=== PATIENT | female | born 1940 | race Caucasian/White ===

== ENCOUNTER 2016-10-21 12:53 | Inpatient (IN) | payer OTHER, MEDICARE ==
--- NOTE | 2016-10-21 13:21 | EDPHY ---
H & P Time Seen by Provider: 10/21/16 13:05 HPI/ROS: Chief complaint. Rectal bleeding HPI. Patient is a 76-year-old female who has had 4 days of rectal bleeding. She was placed on Eliquis in July for atrial fibrillation. She has not previously had rectal bleeding. She has some crampy abdominal pain. She has had bright red blood since Tuesday. She has had a hemoglobin and hematocrit test on Tuesday and Tuesday which showed decreasing hematocrit. Today bright red blood again per rectum with bowel movement. Now today lightheaded on standing and dizzy. No chest discomfort or trouble breathing. No nausea vomiting. She has never had a colonoscopy. No family history for colon cancer. ROS Constitutional. Dizzy and weakness Eyes. no problems with vision ENT. no sore throat, no nasal drainage Cardiovascular. no chest pain Respiratory. no shortness of breath, no cough Abdominal. Abdominal pain and bright red blood per rectum . no problems urinating MS. no calf pain/swelling, no neck/back pain, no joint pain Skin. no rash Lymph. no swollen glands Neuro. no headache, dizziness, difficulty walking secondary dizziness Past Medical/Surgical History: Hypertension and atrial fibrillation Social History: Lives alone, nonsmoker, no alcohol Smoking Status: Never smoked Physical Exam: General Appearance: Alert pleasant well-developed female vital signs show heart rate 110 Eyes: Pupils equal and round no pallor or injection. ENT, Mouth: Mucous membranes are moist. Respiratory: There are no retractions, lungs are clear to auscultation. Cardiovascular: Regular rate and rhythm. Gastrointestinal: Abdomen is soft with diffuse lower abdominal tenderness that is quite mild. Bowel sounds are increased. Rectal exam shows bright red blood Neurological: Awake and alert, sensory and motor exams grossly normal. Skin: Warm and dry, no rashes. Musculoskeletal: Neck is supple nontender. Extremities symmetrical, full range of motion. Psychiatric: Patient is oriented X 3, there is no agitation. Constitutional: Initial Vital Signs Temperature (C) 36.6 C 10/21/16 12:58 Heart Rate 110 H 10/21/16 12:58 Respiratory Rate 20 10/21/16 12:58 Blood Pressure 166/100 H 10/21/16 12:58 O2 Sat (%) 95 10/21/16 12:58 O2 Delivery Mode Room Air Allergies/Adverse Reactions: No Known Allergies Allergy (Verified 10/21/16 12:54) Home Medications: Medication Instructions Recorded Telmisartan 10/21/16 Medical Decision Making - Diagnostics EKG Interpretation: EKG interpreted by me shows atrial fibrillation. Normal axis. No significant ST elevation or depression. Ventricular response is 99 Procedures: IV normal saline. Hemoccult testing ED Course/Re-evaluation: Re-evaluation at 2:30 p.m.. Patient is stable. The patient, her daughter, and I discussed laboratory evaluation EKG findings, treatment plan including need for admission and further evaluation. They expressed understanding and agreement I consulted and discussed case Dr. Haynes, hospitalist, who agrees to the admission I consulted and discussed the case with Dr. Sabillon, location manager for Gastroenterology, who agrees to see the patient. Differential Diagnosis: The patient has ongoing rectal bleeding. She has never had a colonoscopy. She has been on blood thinners up until the last 4 days the bleeding has continued. This may be diverticular bleeding. Differential would also include colon cancer. Presumably the blood thinners play a role in her rectal bleeding - Data Points Laboratory Results: Laboratory Results 10/21/16 13:39 10/21/16 13:39 10/21/16 10/21/16 13:39 13:30 WBC 6.97 10^3/uL (3.80-9.50) RBC 3.90 L 10^6/uL (4.18-5.33) Hgb 11.7 L g/dL (12.6-16.3) Hct 34.5 L % (38.0-47.0) MCV 88.5 fL (81.5-99.8) MCH 30.0 pg (27.9-34.1) MCHC 33.9 g/dL (32.4-36.7) RDW 12.8 % (11.5-15.2) Plt Count 253 10^3/uL (150-400) MPV 11.7 fL (8.7-11.7) Neut % (Auto) 68.7 % (39.3-74.2) Lymph % (Auto) 21.8 % (15.0-45.0) [place] % (Auto) 8.0 % (4.5-13.0) Eos % (Auto) 0.4 L % (0.6-7.6) Baso % (Auto) 0.7 % (0.3-1.7) Nucleat RBC Rel Count 0.0 % (0.0-0.2) Absolute Neuts (auto) 4.78 10^3/uL (1.70-6.50) Absolute Lymphs (auto) 1.52 10^3/uL (1.00-3.00) Absolute Monos (auto) 0.56 10^3/uL (0.30-0.80) Absolute Eos (auto) 0.03 10^3/uL (0.03-0.40) Absolute Basos (auto) 0.05 10^3/uL (0.02-0.10) Absolute Nucleated RBC 0.00 10^3/uL (0-0.01) Immature Gran % 0.4 % (0.0-1.1) Immature Gran # 0.03 10^3/uL (0.00-0.10) PT 13.9 SEC (12.0-15.0) INR 1.08 (0.83-1.16) APTT 26.8 SEC (23.0-38.0) Sodium 139 mEq/L (134-144) Potassium 4.1 mEq/L (3.5-5.2) Chloride 106 mEq/L (97-110) Carbon Dioxide 23 mEq/l (22-31) Anion Gap 10 mEq/L (8-16) BUN 13 mg/dL (7-23) Creatinine 0.7 mg/dL (0.6-1.0) Estimated GFR > 60 Glucose 137 H mg/dL (70-100) Calcium 9.4 mg/dL (8.5-10.4) Stool Occult Bld Scrn POSITIVE H (NEGATIVE) Medications Given: Discontinued Medications Sodium Chloride (Ns) 1,000 mls @ 0 mls/hr IV ONCE ONE PRN Reason: Wide Open Stop: 10/21/16 13:39 Last Admin: 10/21/16 14:06 Dose: 1,000 mls Departure - Departure Disposition: [facility] Inpatient Acute Clinical Impression: Gastrointestinal hemorrhage Qualifiers: GI bleed type/associated pathology: unspecified gastrointestinal hemorrhage type Qualifier Code: (K92.2) Gastrointestinal hemorrhage, unspecified Condition: Fair Referrals: MARQUITA ESTEVEZ [Primary Care Provider] - As per Instructions
[2016-10-21] MEDS ORDERED: NS 1,000 ML IV ONE (13:38)
--- NOTE | 2016-10-21 14:02 | CPEKG ---
Heart Rate: 99 RR Interval: 606 QRSD Interval: 70 QT Interval: 348 QTC Interval: 447 QRS [place]: 44 T Wave [place]: 62 EKG Severity - ABNORMAL ECG - EKG Impression: ATRIAL FIBRILLATION, V-RATE 70-125 Electronically Signed By: Alberto Downing 21-Oct-2016 14:10:11
[2016-10-21 14:19] LABS: % IMMATURE GRANULYOCYTES 0.4 % (0.0-1.1); ABSOLUTE IMMATURE GRANULOCYTES 0.03 10^3/uL (0.00-0.10); ADD DIFF? NO; ADD MORPH? NO; ADD SCAN? NO; ATYPICAL LYMPHOCYTE FLAG 10 (0-99); FRAGMENT RBC FLAG 0 (0-99); HEMATOCRIT 34.5 % (38.0-47.0); HEMOGLOBIN 11.7 g/dL (12.6-16.3); LEFT SHIFT FLG 0 (0-99); LIPEMIA HEMOLYSIS FLAG 90 (0-99); MEAN CELL HEMOGLOBIN CONCENTR. 33.9 g/dL (32.4-36.7); MEAN CELL VOLUME 88.5 fL (81.5-99.8); MEAN PLATELET VOLUME 11.7 fL (8.7-11.7); PLATELET CLUMPS FLAG 0 (0-99); PLATELET COUNT 253 10^3/uL (150-400); RED CELL DISTRIBUTION WIDTH 12.8 % (11.5-15.2)
[2016-10-21 14:22] LABS: ANION GAP 10 mEq/L (8-16); CALCIUM 9.4 mg/dL (8.5-10.4); CARBON DIOXIDE 23 mEq/l (22-31); CHLORIDE 106 mEq/L (97-110); CREATININE 0.7 mg/dL (0.6-1.0); GLOMERULAR FILTRATION RATE > 60; GLUCOSE 137 mg/dL (70-100); POTASSIUM 4.1 mEq/L (3.5-5.2); SODIUM 139 mEq/L (134-144)
[2016-10-21 14:32] LABS: APTT 26.8 SEC (23.0-38.0); INR 1.08 (0.83-1.16); PROTIME(PATIENT) 13.9 SEC (12.0-15.0)
[2016-10-21] MEDS ORDERED: ONDANSETRON 4 MG/2 ML VIAL IVP PRN (15:38)
[2016-10-21] MEDS ORDERED: ACETAMINOPHEN 325 MG TAB PO PRN (15:38)
[2016-10-21] MEDS ORDERED: GOLYTELY 4000 ML BTL PO ONE ×2 (15:39→18:30)
[2016-10-21] MEDS ORDERED: NS 1,000 ML IV SCH (15:45)
--- NOTE | 2016-10-21 16:48 | GHP ---
[f rep st] HISTORY AND PHYSICAL DATE OF ADMISSION: 10/21/2016 CHIEF COMPLAINT: Bright red blood per rectum. HISTORY: The patient is a 76-year-old female who has had bright red blood per rectum for the last 6 days. She called her primary care doctor when it first started and she had labs drawn a couple days as an outpatient and her H and H was very stable and the bleeding at that point completely stopped. She did stop taking her Eliquis with the last dose being 3 days ago. This morning, however, the blee ding came back and so she was informed by primary care to come to the emergency room. She has felt a little lightheaded, cold, thirsty and short of breath. She has never previously had a colonoscopy. She does not take any NSAIDs. She denies any melena. No significant abdominal pain. She denies an y nausea or vomiting, and has had normal oral intake. She denies any recent weight loss. She denies any change in her bowel habits and her bowels all of her life have been very regular where she has a bowel movement 30 minutes after waking up every day and that has not changed. The blood is around t he stool, changing the color of the water, although she does think there has been some blood within t he stool, although it is otherwise still a brown stool. PAST MEDICAL HISTORY: 1. Atrial fibrillation. 2. Hypertension. PAST SURGICAL HISTORY: Tonsillectomy. MEDICATIONS: Eliquis, on hold, multiple supplements, blood pressure medication. ALLERGIES: No known drug allergies. SOCIAL HISTORY: Previous smoking, previous alcohol. 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 CODE STATUS: Full. REVIEW OF SYSTEMS: Complete review of systems obtained. Review of systems is negative on constituti onal, HEENT, GI, pulmonary, cardiovascular, , hematologic, skin, muscular, endocrine and psych exce pt for positives and negatives as in HPI. FAMILY HISTORY: Both her mother and father at age 93 of strokes. PHYSICAL EXAMINATION: GENERAL: Well-developed, well-nourished female in no acute distress. VITAL S IGNS: Temperature 37.0, pulse 110, blood pressure 154/78, saturating 95% on room air. HEENT: Wanda l conjunctivae. Pupils equal and react to light. ENT: Normal. EARS AND NOSE: Hearing intact. No rmal lips and teeth. Oropharynx moist. NECK: Trachea midline. No thyromegaly. CHEST: Normal eff ort. LUNGS: Clear to auscultation bilaterally. CARDIOVASCULAR: Irregularly irregular. No murmur. No lower extremity edema. ABDOMEN: Soft, nontender. No hepatosplenomegaly. SKIN: Warm, dry and intact without rash. MUSCULOSKELETAL: No cyanosis or clubbing. Strength 5/5 upper and lower extre mities. NEUROLOGIC: Cranial nerves intact. Normal sensation to light touch. PSYCHIATRIC: Alert a nd oriented x3. Normal affect. Normal judgment and insight. Normal memory. LABORATORY DATA: White count 6.97, hematocrit 34.8, platelets 253. Sodium 139, potassium 4.1, chlor amarilys 106, bicarb 23, BUN 13, creatinine 0.9, glucose 137, INR is 1.08. EKG viewed by me. My personal interpretation is atrial fibrillation with a heart rate of 99, no ST or T-wave changes. Medical record reviewed. I reviewed outpatient laboratory studies which were available through [employer] from earlier this week. Hematocrit on October 18 was 36.5, and on October 19 was 33.8. ASSESSMENT/PLAN: 1. Lower GI bleed. Her H and H are quite stable over many days, so I do not think this is a brisk b leed by any means. We will continue to follow serial H and Hs through tomorrow morning. We will hyd rate with IV fluids. Gastroenterology has been consulted. She has never had a colonoscopy and is cl early indicated given her advanced age, and blood in her stool, as well as need for Eliquis therapy. Anticipate colonoscopy tomorrow morning with possible EGD depending on GI assessment. 2. Atrial fibrillation. She has been holding her Eliquis since Tuesday, so it is effectively out of her system and I do not feel it is contributing to bleeding at this time. We will watch her rate con trol in atrial fibrillation as she is a little tachycardia here, although that may be due to volume d epletion. 3. Hypertension. Will clarify her home medications. I believe she takes telmisartan. CODE STATUS: Full. ADMISSION STATUS: 1. Will admit to observation as depending on colonoscopy results tomorrow there is the possibility o f discharge home afterwards. 2. Deep venous thrombosis prophylaxis. She is acutely bleeding so will use SCDs only at this time. /[id number]/MODL
[2016-10-21] MEDS ORDERED: DILTIAZEM 125 MG in D5W 125 ML IV SCH (17:30)
[2016-10-21 19:01] LABS: HEMATOCRIT 29.8 % (38.0-47.0); HEMOGLOBIN 9.8 g/dL (12.6-16.3)
[2016-10-22 00:39] LABS: HEMATOCRIT 28.8 % (38.0-47.0)
[2016-10-22 06:25] LABS: % IMMATURE GRANULYOCYTES 0.3 % (0.0-1.1); ABSOLUTE IMMATURE GRANULOCYTES 0.02 10^3/uL (0.00-0.10); ADD DIFF? NO; ADD MORPH? NO; ADD SCAN? NO; ATYPICAL LYMPHOCYTE FLAG 0 (0-99); FRAGMENT RBC FLAG 0 (0-99); HEMATOCRIT 26.6 % (38.0-47.0); LEFT SHIFT FLG 0 (0-99); LIPEMIA HEMOLYSIS FLAG 90 (0-99); MEAN CELL HEMOGLOBIN 30.4 pg (27.9-34.1); MEAN CELL HEMOGLOBIN CONCENTR. 33.8 g/dL (32.4-36.7); MEAN CELL VOLUME 89.9 fL (81.5-99.8); MEAN PLATELET VOLUME 11.2 fL (8.7-11.7); PLATELET CLUMPS FLAG 0 (0-99); PLATELET COUNT 201 10^3/uL (150-400); RED BLOOD CELL COUNT 2.96 10^6/uL (4.18-5.33); RED CELL DISTRIBUTION WIDTH 12.9 % (11.5-15.2)
[2016-10-22 06:42] LABS: ANION GAP 6 mEq/L (8-16); CALCIUM 8.3 mg/dL (8.5-10.4); CARBON DIOXIDE 24 mEq/l (22-31); CHLORIDE 111 mEq/L (97-110); CREATININE 0.7 mg/dL (0.6-1.0); GLOMERULAR FILTRATION RATE > 60; GLUCOSE 113 mg/dL (70-100); POTASSIUM 3.7 mEq/L (3.5-5.2); SODIUM 141 mEq/L (134-144)
--- NOTE | 2016-10-22 08:31 | SOAPPROG ---
SOAP Progress Note Assessment/Plan: Consult appreciated, full note to follow. Chart reviewed, pt. not seen yet. Probable LGIB. - colonoscopy today; further mgmt depending on this result. Thanks! 10/22/16 08:29 Objective: Vital Signs Temp Pulse Resp BP Pulse Ox 37.1 C 101 H 17 130/64 H 99 10/22/16 08:00 10/22/16 08:00 10/22/16 08:00 10/22/16 08:00 10/22/16 08:00 Laboratory Results 10/22/16 06:16 10/22/16 06:16 10/21/16 10/22/16 10/23/16 05:59 05:59 05:59 Intake Total 6403 Output Total 800 Balance 5603 PT 13.9 SEC (12.0-15.0) 10/21/16 13:39 INR 1.08 (0.83-1.16) 10/21/16 13:39 ICD10 Worksheet Patient Problems: Problems Problem Status Diagnosed GI bleeding Acute
--- NOTE | 2016-10-22 09:14 | HOSPPROG ---
Hospitalist Progress Note Assessment/Plan: #Acute blood loss anemia: 2/2 #Hematochezia -drop in H/H to 06/14 today -BP stable. Appreciate GI consultation. Plan for colonoscopy today -she has been holding her Eliquis at home -serial H/H #Atrial fibrillation -currently rate-controlled on low-dose Dilt. Will stop and observe. Mild tachycardia due to blood loss -hydrate with IVFs, holding Eliquis #Benign HTN: hold sartan with active bleeding #Diet: NPO #DVT px: SCDs with active GIB #Disp: pt warrants inpatient admission given acute GIB warranting colonoscopy, IVFs and serial CBC Subjective: some dizziness this morning. No abdominal pain Objective: Vital Signs Temp Pulse Resp BP Pulse Ox 37.1 C 101 H 17 130/64 H 99 10/22/16 08:00 10/22/16 08:00 10/22/16 08:00 10/22/16 08:00 10/22/16 08:00 Laboratory Results 10/22/16 06:16 10/22/16 06:16 10/21/16 10/22/16 10/23/16 05:59 05:59 05:59 Intake Total 6403 Output Total 800 Balance 5603 PT 13.9 SEC (12.0-15.0) 10/21/16 13:39 INR 1.08 (0.83-1.16) 10/21/16 13:39 - Physical Exam Constitutional: no apparent distress, other (pale) Eyes: PERRL Ears, Nose, Mouth, Throat: moist mucous membranes, hearing normal Cardiovascular: regular rate and rhythym, no murmur, rub, or gallop Respiratory: no respiratory distress Gastrointestinal: normoactive bowel sounds, soft, non-tender abdomen Skin: warm Musculoskeletal: full muscle strength Neurologic: AAOx3 Psychiatric: interacting appropriately ICD10 Worksheet Patient Problems: Problems Problem Status Diagnosed GI bleeding Acute
--- NOTE | 2016-10-22 15:11 | GCON ---
[f rep st] CONSULTATION GI INPATIENT CONSULTATION. DATE OF CONSULTATION: 10/22/2016 REQUESTING PROVIDER: I was requested to see the patient by Dr. Haynes. HISTORY OF PRESENT ILLNESS: The patient is a pleasant 76-year-old white female I am asked to see in consultation for chief complaint of blood per rectum. For the last 6 days, she has had bright red blood per rectum. Initial hematocrit stable but has been now decreasing. She stopped her Eliquis 4 days ago. With the above, she has felt somewhat lightheaded. She has not had a previous colonoscopy. She denies using nonsteroidals. She denies significant acute abdominal pain, nausea, vomiting. She denies any recent weight loss. She does state for the last year, she has had some "GI upset" with "gurgling." She will only occasionally have generalized crampy abdominal pain. She has not noted blood in her stool over the last year. For the most part, her bowel movements are regular with only infrequent episodes of diarrhea. PAST MEDICAL HISTORY: 1. As above. 2. Atrial fibrillation. 3. Hypertension. 4. Tonsillectomy. 5. Otherwise noncontributory. ALLERGIES: No known drug allergies. MEDICATIONS: Outpatient medications include the above. Inpatient medications include IV fluids. 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 Her daughter's name is Kira, telephone number [phone]. FAMILY HISTORY: Negative for similar bleeding. REVIEW OF SYSTEMS: Positive pertinent review of systems as per my HPI. Otherwise, her review of systems is negative to make a total of 10 systems. PHYSICAL EXAMINATION: GENERAL: Physical exam reveals a nontoxic-appearing, pleasant woman. VITAL SIGNS: Stable. SKIN: Warm, dry. Pupils equal, round, reactive to light and accommodation. Oropharynx without masses, moist mucosa. NECK: Without thyromegaly, no lymphadenopathy. HEART: Normal S2, normal PMI. LUNGS: Clear to auscultation and percussion anteriorly. ABDOMEN: Soft, nontender. RECTAL: Deferred. EXTREMITIES: Without cyanosis or clubbing. NEUROLOGIC: She is grossly nonfocal. Cranial nerves grossly intact. Orientation, insight appropriate. MUSCULOSKELETAL: Strength is grossly normal throughout, normal station. LABORATORIES: Include an admission hematocrit of 36.5%, then 33.8%, then 34.5% , then 29.8%, then 28.8%, and now 26.6%. Normal platelet count. Normal basic metabolic panel. ASSESSMENT: Bright red blood per rectum. Suspect a lower gastrointestinal bleed, exacerbated by Eliquis. Etiologies include diverticular bleed, arteriovenous malformation, colon polyp or cancer, ulcer, etc. PLAN: 1. Urgent colonoscopy. Certainly, with her age, atrial fibrillation, hypertension, chronic use of anticoagulant, etc., she is at increased risk for this procedure. However, suspected benefits outweigh the risks, and suspect she will do well. 2. Further management depending on the above. Thank you for allowing me to help in the management of patient. /[id number]/MODL MTDD
[2016-10-22] MEDS ORDERED: MIDAZOLAM 2 MG/2 ML VIAL ONE (15:29)
[2016-10-22] MEDS ORDERED: fentaNYL 100 MCG/2 ML INJ ONE (15:29)
--- NOTE | 2016-10-22 17:01 | GPN ---
[f rep st] PROCEDURE NOTE DATE OF PROCEDURE: 10/22/2016 PROCEDURE: Colonoscopy with ablation. INDICATIONS AND PRE-PROCEDURE DIAGNOSIS: Lower gastrointestinal bleeding. POSTPROCEDURE DIAGNOSIS: 1. No further active bleeding. 2. Left-sided diverticulosis. 3. Small internal hemorrhoids. 4. 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 PREMEDICATION: Fentanyl 175 mcg IV, Versed 6 mg IV. COMPLICATIONS: None. FINDINGS: After informed consent was obtained, the patient was placed in left lateral decubitus position. Video pediatric colonoscope was placed in the rectum, advanced to the terminal ileum. Upon slow withdrawal, the terminal ileum was normal. There was a small AVM in the cecum, non bleeding. It was ablated with a 7-[place] BiCap probe at the recommended ERBE settings, several pulses for 1 second each. Upon slow withdrawal, no further blood could be seen in the colon. No blood in the terminal ilium. In the transverse colon, there was a moderate-sized AVM, also nonbleeding. Also, ablated as above. There was sigmoid and descending colon diverticulosis, few in number. Small internal hemorrhoids. IMPRESSION: Lower gastrointestinal bleeding, now resolved. Suspect either diverticular in nature, or possibly from the above AVMs. In terms of the latter , these angioectasias have now been ablated. Suspect her bleeding was exacerbated by Eliquis use. PLAN: 1. We will let her eat. 2. We will buff cap IV. 3. Okay to restart Eliquis. 4. From a GI standpoint, okay to discharge home. 5. As an outpatient, would recommend iron replacement therapy for 8 weeks. Would recommend follow up with her PCP. I will sign off. Please let me know if we can be of further help in the future. Thank you for allowing us to help in the care of this patient. /[id number]/MODL MTDD
[2016-10-22 19:25] LABS: HEMATOCRIT 23.3 % (38.0-47.0); HEMOGLOBIN 7.8 g/dL (12.6-16.3)
[2016-10-22 22:39] LABS: HEMATOCRIT 26.2 % (38.0-47.0); HEMOGLOBIN 8.8 g/dL (12.6-16.3)
[2016-10-23 05:53] LABS: HEMATOCRIT 24.6 % (38.0-47.0); HEMOGLOBIN 8.1 g/dL (12.6-16.3); MEAN CELL HEMOGLOBIN 29.9 pg (27.9-34.1); MEAN CELL HEMOGLOBIN CONCENTR. 32.9 g/dL (32.4-36.7); MEAN CELL VOLUME 90.8 fL (81.5-99.8); RED BLOOD CELL COUNT 2.71 10^6/uL (4.18-5.33); RED CELL DISTRIBUTION WIDTH 13.3 % (11.5-15.2)
[2016-10-23] MEDS: CALCIUM CARBONATE 500 MG TAB PO SCH (08:30)
[2016-10-23] MEDS: OMEGA-3 FATTY ACIDS 1,000 MG CAP PO SCH (08:30)
[2016-10-23] MEDS: ASCORBIC ACID 500 MG TAB PO SCH (08:30)
[2016-10-23] MEDS: CHOLECALCIFEROL VIT D3 1,000 UNITS TAB PO SCH (08:31)
[2016-10-23] MEDS: MAGNESIUM OXIDE 400 MG TAB PO SCH (08:31)
[2016-10-23] MEDS: MULTIVITAMINS 1 EACH TAB PO SCH (08:31)
[2016-10-24 07:16] LABS: HEMATOCRIT 25.5 % (38.0-47.0); HEMOGLOBIN 8.4 g/dL (12.6-16.3); MEAN CELL HEMOGLOBIN 30.4 pg (27.9-34.1); MEAN CELL HEMOGLOBIN CONCENTR. 32.9 g/dL (32.4-36.7); MEAN CELL VOLUME 92.4 fL (81.5-99.8); RED BLOOD CELL COUNT 2.76 10^6/uL (4.18-5.33); RED CELL DISTRIBUTION WIDTH 13.4 % (11.5-15.2)
[2016-10-24] MEDS: CHOLECALCIFEROL VIT D3 1,000 UNITS TAB PO SCH (09:01)
[2016-10-24] MEDS: MAGNESIUM OXIDE 400 MG TAB PO SCH (09:01)
[2016-10-24] MEDS: MULTIVITAMINS 1 EACH TAB PO SCH (09:01)
[2016-10-24] MEDS: CALCIUM CARBONATE 500 MG TAB PO SCH (09:01)
[2016-10-24] MEDS: OMEGA-3 FATTY ACIDS 1,000 MG CAP PO SCH (09:01)
[2016-10-24] MEDS: ASCORBIC ACID 500 MG TAB PO SCH (09:01)
[2016-10-24] MEDS: FERROUS SULFATE 325 MG TAB PO SCH ×2 (15:19→20:44)
--- NOTE | 2016-10-24 17:40 | HOSPPROG ---
Hospitalist Progress Note Assessment/Plan: #Acute blood loss anemia: 2/2 #Hematochezia -suspect diverticular bleed. e/o in sigmoid/descending colon. AVM in cecum/ transverse colon -H/H. BP stable #Persistent dizziness: vitals stable, no further bleeding. Maybe A fib contributing. Add BB -ambulated well with PT today, but still dizzy #Atrial fibrillation -HR to 130s with exertion. Not on rate-controlling agent at home. Start low- dose BB. Holding Eliquis with acute bleed #Benign HTN: hold sartan with active bleeding #Diet: regular #DVT px: SCDs with active GIB #Disp: pt warrants inpatient admission given persistent dizziness and risk for fall, telemetry Subjective: still dizzy today Objective: Vital Signs Temp Pulse Resp BP Pulse Ox 36.9 C 94 17 120/46 L 98 10/24/16 16:00 10/24/16 16:00 10/24/16 16:00 10/24/16 16:00 10/24/16 16:00 Laboratory Results 10/24/16 06:28 10/23/16 10/24/16 10/25/16 05:59 05:59 05:59 Intake Total 950 450 900 Balance 950 450 900 PT 13.9 SEC (12.0-15.0) 10/21/16 13:39 INR 1.08 (0.83-1.16) 10/21/16 13:39 - Physical Exam Constitutional: no apparent distress Eyes: PERRL Ears, Nose, Mouth, Throat: moist mucous membranes, hearing normal Cardiovascular: no murmur, rub, or gallop, irregularly irregular Respiratory: no respiratory distress Gastrointestinal: normoactive bowel sounds, soft, non-tender abdomen Genitourinary: no bladder fullness Skin: warm Musculoskeletal: full muscle strength Neurologic: AAOx3 Psychiatric: interacting appropriately ICD10 Worksheet Patient Problems: Problems Problem Status Diagnosed GI bleeding Acute
[2016-10-24] MEDS: METOPROLOL TARTRATE 25 MG TAB PO SCH ×2 (19:44→20:45)
[2016-10-25 08:20] LABS: HEMOGLOBIN 9.6 g/dL (12.6-16.3); MEAN CELL HEMOGLOBIN 29.6 pg (27.9-34.1); MEAN CELL HEMOGLOBIN CONCENTR. 33.1 g/dL (32.4-36.7); MEAN CELL VOLUME 89.5 fL (81.5-99.8); RED BLOOD CELL COUNT 3.24 10^6/uL (4.18-5.33); RED CELL DISTRIBUTION WIDTH 13.4 % (11.5-15.2)
[2016-10-25] MEDS: CALCIUM CARBONATE 500 MG TAB PO SCH (10:55)
[2016-10-25] MEDS: CHOLECALCIFEROL VIT D3 1,000 UNITS TAB PO SCH (10:55)
[2016-10-25] MEDS: FERROUS SULFATE 325 MG TAB PO SCH ×2 (10:56→20:21)
[2016-10-25] MEDS: MAGNESIUM OXIDE 400 MG TAB PO SCH (10:56)
[2016-10-25] MEDS: MULTIVITAMINS 1 EACH TAB PO SCH (10:56)
[2016-10-25] MEDS: ASCORBIC ACID 500 MG TAB PO SCH (10:56)
[2016-10-25] MEDS: METOPROLOL TARTRATE 25 MG TAB PO SCH ×2 (10:56→20:21)
--- NOTE | 2016-10-25 17:29 | HOSPPROG ---
Hospitalist Progress Note Assessment/Plan: 76 yo F with hx of a fib on eliquis presenting with GI bleed # GI bleed: s/p colonoscopy with 2 AVMs found and ablated, h/h has been stable and increasing since then. # a fib: was on eliquis at home which is being held, will need to determine when to resume but will hold for at least 2 more weeks # dizzyness/deconditioning: patient remains dizzy and having difficulty ambulating. She has been improving but not significantly. Will either dc to home with home health versus to snf in coming 1-2 days depending on improvement # htn: on telmisartan at home, currently bp on the low end on no bp medications , will resume if bp trending back up # dispo: IP status, not yet safe for dc home given inability to ambulate safely and perform ADLs independently Patient new to my care. Old records reviewed and summarized as above. Subjective: no significant overnight events, patient currently feeling better but still dizzy and weak with ambulation Objective: Vital Signs Temp Pulse Resp BP Pulse Ox 36.8 C 100 18 107/59 L 91 L 10/25/16 15:40 10/25/16 15:40 10/25/16 15:40 10/25/16 15:40 10/25/16 15:40 Laboratory Results 10/25/16 08:08 10/24/16 10/25/16 10/26/16 05:59 05:59 05:59 Intake Total 450 1200 Output Total 650 Balance 450 550 PT 13.9 SEC (12.0-15.0) 10/21/16 13:39 INR 1.08 (0.83-1.16) 10/21/16 13:39 awake alert nad anicteric op clear rrr no mrg cta b soft nt nd no cce warm dry well perfused oriented appropriate ICD10 Worksheet Patient Problems: Problems Problem Status Diagnosed GI bleeding Acute
[2016-10-25] MEDS: OMEGA-3 FATTY ACIDS 1,000 MG CAP PO SCH (19:44)
[2016-10-26 07:16] VITALS: O2SAT 91
[2016-10-26] MEDS: CALCIUM CARBONATE 500 MG TAB PO SCH (08:29)
[2016-10-26] MEDS: CHOLECALCIFEROL VIT D3 1,000 UNITS TAB PO SCH (08:30)
[2016-10-26] MEDS: MAGNESIUM OXIDE 400 MG TAB PO SCH (08:30)
[2016-10-26] MEDS: FERROUS SULFATE 325 MG TAB PO SCH (08:30)
[2016-10-26] MEDS: MULTIVITAMINS 1 EACH TAB PO SCH (08:30)
[2016-10-26] MEDS: OMEGA-3 FATTY ACIDS 1,000 MG CAP PO SCH (08:30)
[2016-10-26] MEDS: ASCORBIC ACID 500 MG TAB PO SCH (08:30)
[2016-10-26] MEDS: METOPROLOL TARTRATE 25 MG TAB PO SCH (08:32)
[2016-10-26 12:57] VITALS: BP 121/62; PULSE 95; RESP 20; TEMP 98.1
--- NOTE | 2016-10-26 13:01 | PDIAF ---
- Diagnosis Code Status: Full Code - Medication Management Discharge Medications: Medications to Continue on Transfer Ascorbic Acid [Vitamin C 500 mg (*)] 500 mg PO DAILY 10/21/16 [Last Taken Unknown] Calcium Carbonate [Oyster Shell Calcium 500 mg (*)] 500 mg PO DAILY 10/21/16 [ Last Taken Unknown] Cholecalciferol Vit D3 [Vitamin D3 (*)] 1,000 units PO DAILY 10/21/16 [Last Taken Unknown] Magnesium Oxide [Magnesium Oxide 400 mg (*)] 400 mg PO DAILY 10/21/16 [Last Taken Unknown] Multivitamins [Multivitamin (*)] 1 each PO DAILY 10/21/16 [Last Taken Unknown] [place]-3 Fatty Acids [Fish Oil 1000 mg (*)] 1,000 mg PO DAILY 10/21/16 [Last Taken Unknown] Pyridoxine HCl [Vitamin B-6 25 mg (*)] 25 mg PO DAILY 10/21/16 [Last Taken Unknown] Ferrous Sulfate [Ferrous Sulf 325 MG (*)] 325 mg PO BID #60 tab 10/23/16 [Last Taken Unknown] Ferrous Sulfate [Ferrous Sulf 325 MG (*)] 325 mg PO BID #0 tab 10/26/16 [Last Taken Unknown] Metoprolol Tartrate [Lopressor 25 mg (*)] 12.5 mg PO BID #60 tab 10/26/16 [Last Taken Unknown] Discharge Medications: Refer to the Discharge Home Medication list for PRN reason. - Orders Services needed: Home Care, Registered Nurse, Physical Therapy, Occupational Therapy Home Care Face to Face: I certify that this patient was under my care and that I had the required [id number] encounter meeting the encounter requirements on the discharge day. My findings support the fact that the patient is homebound as defined in CMS Chapter 7 Medicare Benefits Manual 30.1.1, The condition of the patient is such that there exists a normal inability to leave home and consequently, leaving home would require a considerable and taxing effort. Diet Recommendation: cardiac -low fat low salt - Follow Up Care Current Providers and Referrals: MARQUITA ESTEVEZ [Primary Care Provider] - follow up in 1 week (repeat CBC) Perry Darnell MD [Medical Doctor] -
--- NOTE | 2016-10-26 15:51 | PDDCSUM ---
Discharge Summary Discharge Summary: Dates of service 10/21-10/26/16 Discharge dx: # gi bleed # a fib # dizzyness # acute blood loss anemia # htn consultations: cardiology, gi Procedures performed: colonsocopy with ablation Hospital course by problem: # GI bleed: s/p colonoscopy with 2 AVMs found and ablated, h/h has been stable and increasing since then. # a fib: was on eliquis at home which is being held, will need to determine when to resume but will hold for at least 2 more weeks, continues to have increased hr with exertion, cardiology evaluated and does not think any changes are required # dizzyness/deconditioning: patient remains dizzy and having difficulty ambulating. She has been improving but not significantly. Will either dc to home with home health versus to snf in coming 1-2 days depending on improvement # acute blood loss anemia: stable h/h # htn: on telmisartan at home, currently bp on the low end on no bp medications , continue to hold telmisartan for now dc home f/u with pcp/cardiology Meds: see EHR, continue to hold telmisartan
--- NOTE | 2016-10-26 16:12 | PDCARCONS ---
Cardiology Consult Reason for Consult: Tachycardia with exertion Chief Complaint: weakness and increased heart rate Requesting Physician: Dr. Kern History of Present Illness: Ms. Mekhi Howard is a 76-year-old female well known to me history of atrial fibrillation on beta-adán for rate control admitted for a GI bleed. I was asked to visit with her today because she noticed that when she gets up her heart rate would increase. She wants to make sure that that was safe. Patient denies angina, PND, orthopnea. She has had no syncope or near syncope. She has had mild dizziness when she stands. Patient had an extensive evaluation this past summer. On 04/05/2016 she had an echocardiogram revealing ejection fraction of 65%. She had no significant valvular abnormalities with mild aortic mitral and tricuspid regurgitation. Pulmonary pressures were not evaluated. Patient was seen by my partner Dr. Cheo Josue also in March. She had known coronary artery disease diagnosed by calcium scoring. She had a normal nuclear stress test. She was diagnosed with atrial fibrillation at that time and started on Eliquis for management of stroke reduction. Risk factors include hypertension hyperlipidemia which has been managed conservatively. Patient has no prior history of myocardial infarction, valvular heart disease, heart failure. She has had no recurrent cardiac events since I last saw her on June 21. At that time she was taking Eliquis. She was on Micardis for blood pressure control, niacin. History Information - Allergies/Home Medication List Allergies/Adverse Reactions: No Known Allergies Allergy (Verified 10/21/16 12:54) Home Medications: Ascorbic Acid [Vitamin C 500 mg (*)] 500 mg PO DAILY 10/21/16 [Last Taken Unknown] Calcium Carbonate [Oyster Shell Calcium 500 mg (*)] 500 mg PO DAILY 10/21/16 [ Last Taken Unknown] Cholecalciferol Vit D3 [Vitamin D3 (*)] 1,000 units PO DAILY 10/21/16 [Last Taken Unknown] Magnesium Oxide [Magnesium Oxide 400 mg (*)] 400 mg PO DAILY 10/21/16 [Last Taken Unknown] Multivitamins [Multivitamin (*)] 1 each PO DAILY 10/21/16 [Last Taken Unknown] Revelo-3 Fatty Acids [Fish Oil 1000 mg (*)] 1,000 mg PO DAILY 10/21/16 [Last Taken Unknown] Pyridoxine HCl [Vitamin B-6 25 mg (*)] 25 mg PO DAILY 10/21/16 [Last Taken Unknown] - Social History Smoking Status: Former smoker Physical Exam Temp Pulse Resp BP Pulse Ox 36.7 C 95 20 121/62 H 91 L 10/26/16 12:54 10/26/16 12:54 10/26/16 12:54 10/26/16 12:54 10/26/16 12:54 O2 (L/minute) 2 Lab and Imaging 10/25/16 08:08 10/22/16 06:16 WBC 6.62 10^3/uL (3.80-9.50) 10/25/16 08:08 RBC 3.24 10^6/uL (4.18-5.33) L 10/25/16 08:08 Hgb 9.6 g/dL (12.6-16.3) L 10/25/16 08:08 Hct 29.0 % (38.0-47.0) L 10/25/16 08:08 MCV 89.5 fL (81.5-99.8) 10/25/16 08:08 MCH 29.6 pg (27.9-34.1) 10/25/16 08:08 MCHC 33.1 g/dL (32.4-36.7) 10/25/16 08:08 RDW 13.4 % (11.5-15.2) 10/25/16 08:08 Plt Count 218 10^3/uL (150-400) 10/25/16 08:08 MPV 11.2 fL (8.7-11.7) 10/22/16 06:16 Neut % (Auto) 68.1 % (39.3-74.2) 10/22/16 06:16 Lymph % (Auto) 23.1 % (15.0-45.0) 10/22/16 06:16 Bullitt % (Auto) 7.6 % (4.5-13.0) 10/22/16 06:16 Eos % (Auto) 0.3 % (0.6-7.6) L 10/22/16 06:16 Baso % (Auto) 0.6 % (0.3-1.7) 10/22/16 06:16 Nucleat RBC Rel Count 0.0 % (0.0-0.2) 10/22/16 06:16 Absolute Neuts (auto) 5.28 10^3/uL (1.70-6.50) 10/22/16 06:16 Absolute Lymphs (auto) 1.79 10^3/uL (1.00-3.00) 10/22/16 06:16 Absolute Monos (auto) 0.59 10^3/uL (0.30-0.80) 10/22/16 06:16 Absolute Eos (auto) 0.02 10^3/uL (0.03-0.40) L 10/22/16 06:16 Absolute Basos (auto) 0.05 10^3/uL (0.02-0.10) 10/22/16 06:16 Absolute Nucleated RBC 0.00 10^3/uL (0-0.01) 10/22/16 06:16 Immature Gran % 0.3 % (0.0-1.1) 10/22/16 06:16 Immature Gran # 0.02 10^3/uL (0.00-0.10) 10/22/16 06:16 PT 13.9 SEC (12.0-15.0) 10/21/16 13:39 INR 1.08 (0.83-1.16) 10/21/16 13:39 APTT 26.8 SEC (23.0-38.0) 10/21/16 13:39 Sodium 141 mEq/L (134-144) 10/22/16 06:16 Potassium 3.7 mEq/L (3.5-5.2) 10/22/16 06:16 Chloride 111 mEq/L (97-110) H 10/22/16 06:16 Carbon Dioxide 24 mEq/l (22-31) 10/22/16 06:16 Anion Gap 6 mEq/L (8-16) 10/22/16 06:16 BUN 10 mg/dL (7-23) 10/22/16 06:16 Creatinine 0.7 mg/dL (0.6-1.0) 10/22/16 06:16 Estimated GFR > 60 10/22/16 06:16 Glucose 113 mg/dL (70-100) H 10/22/16 06:16 Calcium 8.3 mg/dL (8.5-10.4) L 10/22/16 06:16 Stool Occult Bld Scrn POSITIVE (NEGATIVE) H 10/21/16 13:30 Patient ABO/Rh O POSITIVE 10/22/16 22:30 Antibody Screen NEGATIVE 10/22/16 22:30 Crossmatch IS Only See Detail 10/22/16 22:30 EKG Interpretation: Positive for: other ( Atrial fibrillation with ventricular rate of 99.) A/P Assessment: impression: 76-year-old female well known to me with atrial fibrillation. She had been on Eliquis for anticoagulation. Recommend resumption as soon as reasonably possible. Patient has been on low-dose beta-adán for rate control. She appears to be rate controlled at rest today with relatively good control with walking in the setting of her significant anemia. We will follow her up as an outpatient. Hypertension on Micardis currently well controlled. Hyperlipidemia on niacin per Dr. Chaves. Coronary artery disease by calcium scoring. The present time she has no evidence of acute coronary syndrome based on clinical history or EKG. Continue secondary prevention. Questions were answered. She will be discharged home today by hospitalist service. We will follow her up in the next 14-21 days. Past Medical History - Personal History Current Tetanus/Diphtheria Vaccine: Unsure - Medical/Surgical History Hx Asthma: No Hx Chronic Respiratory Disease: No Hx Cardiac Disease: Yes Hx Diabetes: No Hx Renal Disease: No Hx Alcoholism: No Hx Cirrhosis: No Hx HIV/AIDS: No Hx Splenectomy or Spleen Trauma: No Other PMH: a fib, HTN - Family History Significant Family History: Other ( Family history of congestive heart failure and CVA.) - Social History Smoking Status: Former smoker Review of Systems - Review of Systems Constitutional: weakness. denies: chills, fever Respiratory: no symptoms reported Cardiac: lightheadedness, palpitations. denies: chest pain, edema, syncope Gastrointestinal/Abdominal: black stools Genitourinary: no symptoms Musculoskelatal: no symptoms Skin: no symptoms Neurological: no symptoms Hematologic/Lymphatic: anemia
== END 2016-10-26 14:50 | disposition home health service (06) | DRG 378 ==
LOC: F3E 15:21 → F2N 18:26 → OBSVTOIN 10-22 09:09 → F2N 10-22 16:01 → F2W 10-23 09:27
PROVIDERS: ADMIT Internal Medicine; ATTEND Internal Medicine
PROC: 0D5L8ZZ Destruction of Transverse Colon, Via Natural or Artificial Opening Endoscopic (ICD-10-PCS; principal; 2016-10-22 14:15)
PROC: 0D5H8ZZ Destruction of Cecum, Via Natural or Artificial Opening Endoscopic (ICD-10-PCS; principal; 2016-10-22 14:15)
DX: K55.21 Angiodysplasia of colon with hemorrhage (principal); D62 Acute posthemorrhagic anemia; K57.31 Diverticulosis of large intestine without perforation or abscess with bleeding; Q27.33 Arteriovenous malformation of digestive system vessel; T45.515A Adverse effect of anticoagulants, initial encounter; K64.8 Other hemorrhoids; I10 Essential (primary) hypertension; I48.91 Unspecified atrial fibrillation; Z87.891 Personal history of nicotine dependence; Z79.01 Long term (current) use of anticoagulants
CPT/HCPCS: 97116-GP; 97163-GP; 97530-GP; G0378; G8978-GP-CI; G8978-GP-CL; G8979-GP-CI; G8980-GP-CI; J2250; J3010

== ENCOUNTER → 2018-11-02 | Outpatient (CLI) | payer OTHER, MEDICARE | LOC: BHFA 13:15 | PROVIDERS: ATTEND Internal Medicine Interventional Cardiology | DX: I48.91 Unspecified atrial fibrillation (principal); I25.10 Atherosclerotic heart disease of native coronary artery without angina pectoris; I25.84 Coronary atherosclerosis due to calcified coronary lesion; I10 Essential (primary) hypertension; R06.02 Shortness of breath ==